=== PATIENT | female | born 1980 | race Caucasian/White ===

== ENCOUNTER 2018-10-09 19:12 | Emergency (ER) | payer MEDICAID ==
[~2018-10-09] VITALS: Ht 162.6 cm; Wt 63.5 kg
[2018-10-09 19:14] VITALS: BP 121/86
--- NOTE | 2018-10-09 19:25 | NUR ---
PT BIB FRIEND C/O LEFT FOOT PAIN. PT STATES SHE HAS ATHLETES FOOT, A FRIEND PEED ON HER FOOT B/C SHE HEARD IT HELPS CURE ATHLETES FOOTS; PAIN, SWELLING, REDNESS AND BLISTERING WORSE SINCE FOOT WAS URINATED ON; DENIES TRAUMA OR INJURY. PT STATES 8/10 PAIN W/ MOVEMENT. --AROM; +2 PEDIAL PULSES EQUAL BL. CAP REFIL <2. REDNESS W/ STREAKING AROUND OPEN BLISTER. +SWELLING, NON PITTING, +BLANCHING. --PT ACTING APPROPRIALTY, SPEAKING IN CLEAR AND COMPLETE SENTENCES. BREATHING EQUAL AND UNLABORED. PT POSITIONED FOR COMFORT; BED IN LOWER LOCKED POSITION, BEDRAILS UP X1. PENDING ERMD EVAL. PMH: DENIES RX: DENIES
--- NOTE | 2018-10-09 19:49 | NUR ---
DR. RESENDIZ AT BEDSIDE FOR EVALUATION.
[2018-10-09] MEDS ORDERED: KETOROLAC 60 MG/2 ML VIAL IM ONE (20:05)
--- NOTE | 2018-10-09 20:32 | NUR ---
Patient discharged with v/s stable. Patient acting appropriatly, states pain has decreased to 4/10 and pain is more tolerable. Written and verbal after care instructions given and explained. Patient alert, oriented and verbalized understanding of instructions. Wheel chair assisted to car by EMT and freind at side. All questions addressed prior to discharge. ID band removed. Patient advised to follow up with PMD. Rx of Bactrim, and Motrin given. Patient educated on indication of medication including possible reaction and side effects. Opportunity to ask questions provided and answered.
[2018-10-09 20:37] VITALS: BP 118/73
== END 2018-10-09 20:32 | disposition home or self-care (01) ==
LOC: MED 19:12
DX: L03.116 Cellulitis of left lower limb (principal); F17.200 Nicotine dependence, unspecified, uncomplicated; Z88.1 Allergy status to other antibiotic agents
CPT/HCPCS: 96372; 99283; J1885

== ENCOUNTER 2019-10-24 19:08 | Emergency (ER) | payer MEDICAID ==
[~2019-10-24] VITALS: Ht 162.6 cm; Wt 68.0 kg
[2019-10-24 19:15] VITALS: BP 144/89
[2019-10-24] MEDS ORDERED: AZITHROMYCIN 250 MG TAB PO ONE (19:35)
[2019-10-24] MEDS ORDERED: DOXYCYCLINE 100 MG CAP PO ONE (19:35)
--- NOTE | 2019-10-24 20:10 | NUR ---
URINE DIP RESULTS GIVEN TO NAT HANSEN
[2019-10-24 20:16] VITALS: BP 144/89
--- NOTE | 2019-10-24 20:16 | NUR ---
Patient discharged with v/s stable. Written and verbal after care instructions given and explained. Patient alert, oriented and verbalized understanding of instructions. Ambulatory with steady gait. All questions addressed prior to discharge. ID band removed. Patient advised to follow up with PMD. Rx of DOXYCYCLINE, MACROBID, AND PYRIDIUM given. Patient educated on indication of medication including possible reaction and side effects. Opportunity to ask questions provided and answered.
[2019-10-26 06:08] LABS: CHLAMYDIA TRACHOMATIS AMP DNA Negative (Negative)
== END 2019-10-24 20:16 | disposition home or self-care (01) ==
LOC: MED 19:08
DX: N39.0 Urinary tract infection, site not specified (principal); Z11.3 Encounter for screening for infections with a predominantly sexual mode of transmission; A64 Unspecified sexually transmitted disease; Z88.1 Allergy status to other antibiotic agents
CPT/HCPCS: 36415; 81002; 81025; 87491; 99283

== ENCOUNTER 2020-02-03 15:06 | Emergency (ER) | payer MEDICAID ==
[~2020-02-03] VITALS: Ht 162.6 cm; Wt 72.6 kg
[2020-02-03 15:15] VITALS: BP 124/86
--- NOTE | 2020-02-03 15:19 | NUR ---
WAIT AT LOBBY. HANDED ON URINE CUP.
--- NOTE | 2020-02-03 15:27 | NUR ---
39/F BIB SELF C/O URINARY FREQUENCY X THIS MORNING.MED HX: DENIES. DENIES N/V/D; SKIN IS PINK/WARM/DRY; AAOX4 WITH EVEN AND STEADY GAIT; LUNGS CLEAR BL; HR EVEN AND REGULAR; PT DENIES ANY FEVER, CP, SOB, OR COUGH AT THIS TIME; PATIENT STATES PAIN OF 0/10 AT THIS TIME.
[2020-02-03 15:56] VITALS: BP 124/86
[2020-02-03] MEDS: PHENAZOPYRIDINE 100 MG TAB PO ONE (16:07)
[2020-02-03] MEDS: CIPROFLOXACIN 250 MG TAB PO ONE (16:07)
== END 2020-02-03 15:56 | disposition home or self-care (01) ==
LOC: MED 15:06
DX: N39.0 Urinary tract infection, site not specified (principal); Z88.2 Allergy status to sulfonamides
CPT/HCPCS: 81002; 81025; 99283

== ENCOUNTER 2022-02-01 19:34 | Emergency (ER) | payer MEDICAID ==
[~2022-02-01] VITALS: Ht 162.6 cm; Wt 73.5 kg
[2022-02-01 20:42] VITALS: BP 118/72
--- NOTE | 2022-02-01 22:43 | NUR ---
PT TAKEN TO BED 6
--- NOTE | 2022-02-01 23:09 | NUR ---
Dr. Vaughan examining patient.
[2022-02-01] MEDS ORDERED: KETOROLAC 60 MG/2 ML VIAL IM ONE (23:10)
[2022-02-01] MEDS ORDERED: SULF-59 PO (23:34)
[2022-02-01] MEDS ORDERED: IBUP-2213 PO (23:34)
[2022-02-01 23:40] VITALS: BP 126/68
--- NOTE | 2022-02-01 23:40 | NUR ---
Chart checked and completed.
--- NOTE | 2022-02-01 23:40 | NUR ---
Patient discharged with v/s stable. Written and verbal after care instructions given WOUND INFECTION and explained. Patient alert, oriented and verbalized understanding of instructions. Ambulatory with steady gait. All questions addressed prior to discharge. ID band removed. Patient advised to follow up with PMD. Rx of IBUPROFEN, BACTRIM DS given.
== END 2022-02-01 23:40 | disposition home or self-care (01) ==
LOC: MED 19:34
DX: T81.49XA Infection following a procedure, other surgical site, initial encounter (principal); F17.200 Nicotine dependence, unspecified, uncomplicated; Z98.890 Other specified postprocedural states; Z88.0 Allergy status to penicillin; Y84.8 Other medical procedures as the cause of abnormal reaction of the patient, or of later complication, without mention of misadventure at the time of the procedure
CPT/HCPCS: 96372; 99283; J1885

== ENCOUNTER 2023-02-17 03:08 | Emergency (ER) | payer MEDICAID ==
[~2023-02-17] VITALS: Ht 162.6 cm; Wt 77.1 kg
[~2023-02-17 03:08] MED LIST: IBUP-2213 PO; SULF-59 PO
[2023-02-17 03:23] VITALS: BP 128/80; PULSE 104; RESP 16; TEMP 96.3; O2SAT 99
[2023-02-17] MEDS ORDERED: LOTC TP (03:48)
[2023-02-17] MEDS ORDERED: CEPH-588 PO (03:48)
[2023-02-17] MEDS ORDERED: IBUP-2213 PO (03:48)
[2023-02-17] MEDS ORDERED: IBUPROFEN 600 MG TAB PO ONE (03:50)
[2023-02-17 04:00] VITALS: O2SAT 99
== END 2023-02-17 04:15 | disposition home or self-care (01) ==
LOC: MED 03:08
DX: B35.3 Tinea pedis (principal); L03.116 Cellulitis of left lower limb; L03.115 Cellulitis of right lower limb; Z88.1 Allergy status to other antibiotic agents
CPT/HCPCS: 99282

== ENCOUNTER 2023-03-10 14:17 | Emergency (ER) | payer MEDICAID ==
[~2023-03-10] VITALS: Ht 167.6 cm; Wt 72.6 kg
[~2023-03-10 14:17] MED LIST changes: +CEPH-588 PO; +LOTC TP
[2023-03-10 14:29] VITALS: BP 131/78; PULSE 103; RESP 18; TEMP 97; O2SAT 98
[2023-03-10 15:25] LABS: APPEARANCE,URINE CLEAR (CLEAR); BILIRUBIN,URINE NEGATIVE (NEGATIVE); BLOOD, URINE TRACE-I (NEGATIVE); COLOR,URINE YELLOW (YELLOW); LEUKOCYTE ESTERASE ,URINE 1+ (NEGATIVE); NITRITE, URINE NEGATIVE (NEGATIVE); PH,URINE 6.5 (5.0-9.0); PROTEIN,URINE NEGATIVE (NEGATIVE); UGLUCOSE NEGATIVE (NEGATIVE); UROBILINOGEN,URINE 0.2 EU/dL (0.2 - 1)
[2023-03-10 15:37] LABS: BACTERIA,URINE 10-30 (MOD) /HPF (None Seen); SQUAMOUS EPITHELIAL CELL,UR 4-10 (MOD) /LPF (0-3 (FEW))
[2023-03-10] MEDS ORDERED: CEPH-588 PO (15:40)
[2023-03-10] MEDS ORDERED: PHEN-1877 PO (15:40)
== END 2023-03-10 16:01 | disposition home or self-care (01) ==
LOC: MED 14:17
DX: N39.0 Urinary tract infection, site not specified (principal); Z79.899 Other long term (current) drug therapy
CPT/HCPCS: 81001; 81025; 87086; 99283